=== PATIENT | male | born 1960 | race Caucasian/White ===

== ENCOUNTER 2017-09-21 06:36 | Day surgery (SDC) | payer OTHER ==
[2017-09-20 12:16] VITALS: BMI 28.8
[2017-09-21 07:03] LABS: Hemoglobin 13.1 g/dL (14.0-18.0); Mean Corpuscular HGB CONC 34.7 g/dL (32.0-36.0); Mean Corpuscular Hemoglobin 33.5 pg (27.0-31.0); Mean Corpuscular Volume 96.6 fL (78.0-98.0); Mean Platelet Volume 7.2 fL (7.4-10.4); Platelet Count 240 thou/uL (130-400); RBC Distribution Width 12.2 % (11.5-14.5); Red Blood Cell (RBC) Count 3.92 mill/uL (4.70-6.10)
[2017-09-21 07:24] LABS: Anion Gap 15 mmol/L (10-20); BUN (Urea Nitrogen) 8 mg/dL (8.4-25.7); Calc. Creatinine Clearance 143 mL/min (70-130); Calcium 9.2 mg/dL (7.8-10.44); Carbon Dioxide 26 mmol/L (22-29); Chloride 92 mmol/L (98-107); Estimated GFR-MDRD Greater than 90; Glucose 98 mg/dL (70-105); Potassium 4.6 mmol/L (3.5-5.1); Sodium 128 mmol/L (136-145)
[2017-09-21] MEDS ORDERED: CEFAZOLIN/Water 2 GM/20 ML SYRINGE ONE (07:27)
[2017-09-21] MEDS ORDERED: Midazolam HCl 2 mg/2 ml Vial ONE ×2 (08:31→08:39)
[2017-09-21] MEDS ORDERED: Fentanyl 100 MCG/2 ML VIAL ONE ×3 (10:04→12:51)
[2017-09-21] MEDS ORDERED: hydrALAZINE 20 MG/ML VIAL ONE (12:56)
[2017-09-21] MEDS ORDERED: Morphine 4 MG/ML VIAL ONE (13:34)
[2017-09-21] MEDS ORDERED: HYDROcodone/Acetaminophen 5/325 mg Tablet ONE (13:34)
[2017-09-21] MEDS ORDERED: Lidocaine 1% PF 5 ML VIAL ONE (13:43)
[2017-09-21] MEDS ORDERED: Ondansetron PF 4 MG/2 ML Vial ONE (13:43)
[2017-09-21] MEDS ORDERED: Dexamethasone 20 MG/5 ML VIAL ONE (13:43)
[2017-09-21] MEDS ORDERED: PROPOFOL 200 MG/20 ML VIAL ONE (13:43)
[2017-09-21] MEDS ORDERED: Glycopyrrolate 0.2 MG/ML 5 ML SYRINGE ONE (13:43)
[2017-09-21] MEDS ORDERED: diphenhydrAMINE 50 MG/ML VIAL ONE (13:43)
[2017-09-21] MEDS ORDERED: PHENYLEPHRINE-NS 100 MCG/ML 10 ML SYRINGE ONE (13:43)
--- NOTE | 2017-09-21 13:49 | OP ---
DATE OF OPERATION: 09/21/2017 SURGEON: Tamir Patrick M.D. EEG TECHNICIAN: Leslie Granados PROCEDURE: Right L4 foraminotomy. PROCEDURE IN DETAIL: The patient brought to the operating room and intubated. He was rolled in the prone position on gel-filled chest rolls. Incision made exposing L4 and L5 and our level was confirm ed by x-ray. We performed a right L4-5 laminectomy, facetectomy and a complete right L4 foraminotomy , completely decompressing the right L4 nerve root. The wound was extensively irrigated, immaculate hemostasis was secured. Vancomycin powder was applied and the wound was closed in anatomic layers.
--- NOTE | 2017-12-12 16:56 | EKG ---
Test Reason : PREOP Blood Pressure : / mmHG Vent. Rate : 080 BPM Atrial Rate : 080 BPM P-R Int : 148 ms QRS Dur : 084 ms QT Int : 360 ms P-R-T Axes : 015 -03 009 degrees QTc Int : 415 ms Normal sinus rhythm Normal ECG No previous ECGs available Confirmed by LUIS GUILLERMO M.D. ([id number]) on 12/12/2017 4:56:05 PM Referred By: NADER Confirmed By:LUIS GUILLERMO M.D.
== END 2017-09-21 15:15 | disposition home or self-care (01) ==
LOC: SDC 06:36
PROVIDERS: ATTEND Neurological Surgery
PROC: 01NB0ZZ Release Lumbar Nerve, Open Approach (ICD-10-PCS; principal; 2017-09-21)
DX: M99.83 Other biomechanical lesions of lumbar region (principal); M54.16 Radiculopathy, lumbar region; F41.9 Anxiety disorder, unspecified; I10 Essential (primary) hypertension; F43.10 Post-traumatic stress disorder, unspecified; Z79.899 Other long term (current) drug therapy
CPT/HCPCS: 36415; 80048; 85027; 93005; 93010; 96374; 96375; 96376; J0360; J1100; J1200; J2001; J2250; J2270; J2405; J2704; J3010

== ENCOUNTER 2018-07-23 15:36 | Emergency (ER) | payer OTHER ==
[~2018-07-23 15:36] MED LIST: ISOVUE-370 76%-LOCM 1 ML ONE
[2018-07-23 16:25] LABS: #Basophils 0.1 thou/uL (0.0-0.2); #Eosinphils 0.1 thou/uL (0.0-0.7); #Lymphocytes 1.4 thou/uL (1.20-3.40); #Monocytes 0.6 thou/uL (0.11-0.59); #Neutrophils 3.2 thou/uL (1.40-6.50); %Basophils 1.9 % (0.0-1.0); %Eosinophils 1.8 % (0.0-10.0); %Lymphocytes 25.7 % (21.0-51.0); %Monocytes 11.6 % (0.0-10.0); Hemoglobin 12.4 g/dL (14.0-18.0); Mean Corpuscular HGB CONC 32.4 g/dL (32.0-36.0); Mean Corpuscular Hemoglobin 32.3 pg (27.0-31.0); Mean Corpuscular Volume 99.7 fL (78.0-98.0); Mean Platelet Volume 8.9 fL (7.4-10.4); Platelet Count 210 thou/uL (130-400); Red Blood Cell (RBC) Count 3.84 mill/uL (4.70-6.10); White Blood Cell (WBC) Count 5.4 thou/uL (4.8-10.8)
--- NOTE | 2018-07-23 16:44 | RAD ---
RADIOGRAPH CHEST 2 VIEWS: DATE: 07/23/2018 HISTORY: 57-year-old male with chest pain FINDINGS: There is no airspace density, pulmonary edema, pleural effusion, pneumothorax, or cardiomegaly. IMPRESSION: No acute cardiopulmonary findings.
[2018-07-23 16:48] LABS: ALT (SGPT) 105 U/L (8-55); AST (SGOT) 61 U/L (5-34); Albumin 4.5 g/dL (3.5-5.0); Alkaline Phosphatase 92 U/L (40-150); Anion Gap 15 mmol/L (10-20); BUN (Urea Nitrogen) 17 mg/dL (8.4-25.7); Bilirubin, Total 0.4 mg/dL (0.2-1.2); Calc. Creatinine Clearance 0 mL/min (70-130); Calcium 9.4 mg/dL (7.8-10.44); Carbon Dioxide 28 mmol/L (22-29); Chloride 99 mmol/L (98-107); Estimated GFR-MDRD 75; Globulin 2.1 g/dL (2.4-3.5); Glucose 113 mg/dL (70-105); Potassium 4.7 mmol/L (3.5-5.1); Protein, Total 6.6 g/dL (6.0-8.3); Sodium 137 mmol/L (136-145)
--- NOTE | 2018-07-23 17:49 | CT ---
CT angiogram thorax with contrast: (CTA pulmonary angiogram) HISTORY: 57-year-old male with chest pain, syncope, and elevated d-dimer. TECHNIQUE: IV injection of iodinated contrast. Scan acquisition timing attempted to coincide with iodinated contrast bolus reaching maximal density in pulmonary arteries. 3-D MIP reconstructions. FINDINGS: Pulmonary thromboembolism: None. Lungs: Clear. Pneumothorax: None. Pleural effusion: None. Thoracic aorta: No aneurysm or dissection. Mediastinum: No lymphadenopathy or other mass. Abi: No lymphadenopathy or other mass. Suture lines around gastric bypass postsurgical, distorted stomach. IMPRESSION: 1. Status post bariatric surgery. 2. Otherwise Normal.
== END 2018-07-23 18:06 | disposition home or self-care (01) ==
LOC: ERS 15:36
DX: I10 Essential (primary) hypertension (principal); M06.9 Rheumatoid arthritis, unspecified; E03.9 Hypothyroidism, unspecified; F43.10 Post-traumatic stress disorder, unspecified; Z79.899 Other long term (current) drug therapy
CPT/HCPCS: 71046; 71275; 80053; 84443; 84484; 85025; 85379; 93005; 94760; 96360; Q9966

== ENCOUNTER 2019-01-30 08:48 | Day surgery (SDC) | payer OTHER ==
[2019-01-29 11:30] VITALS: BMI 26.7
[2019-01-30] MEDS ORDERED: Lidocaine 1% PF 5 ML VIAL ONE (11:07)
[2019-01-30] MEDS ORDERED: PROPOFOL 200 MG/20 ML VIAL ONE (11:07)
[2019-01-30] MEDS ORDERED: hydrALAZINE 20 MG/ML VIAL ONE (13:23)
[2019-01-30] MEDS ORDERED: Ondansetron PF 4 MG/2 ML Vial ONE (13:26)
--- NOTE | 2019-01-30 16:21 | OP ---
DATE OF PROCEDURE: 01/30/2019 PROCEDURES PERFORMED: Esophagogastroduodenoscopy with biopsy and colonoscopy with biopsy. PREOPERATIVE DIAGNOSES: Chronic nausea and vomiting and chronic diarrhea and family history of colon cancer. DESCRIPTION OF PROCEDURE: Informed consent was obtained from the patient. He was sedated with total intravenous anesthesia. The bite block was placed and the endoscope was advanced to the jejunum without difficulty. The esophagus had some yellow plaques in the distal esophagus and biopsies were obtained to rule out fungal esophagitis. There was a stricture in the distal esophagus, which was dilated to 18 mm with a balloon. There was no significant change on mucosal break with the dilation. There was a small stomach pouch consistent with a prior Kina-en-Y gastric bypass. There was a 9 mm shallow ulcer at the gastrojejunal anastomosis on the jejunal side. Biopsies were obtained at the edge of the ulcer and from the stomach at the anastomosis. The jejunal mucosa was normal. The gastric mucosa was otherwise normal; however, there was only a small pouch present. The air was suctioned. The patient was turned around. Rectal exam was performed and was normal. The colonoscope was advanced to the terminal ileum without difficulty. The mucosa of the terminal ileum was normal. The ileocecal valve and appendiceal orifice were clearly identified. The preparation quality was good. I removed a 2 mm polyp from the transverse colon by cold biopsy forceps. Random biopsies were taken from the right and left colon to rule out microscopic colitis. The remainder of the colonic mucosa was normal. Retroflex views in the rectum were normal. IMPRESSION: 1. Few yellow plaques in the distal esophagus, biopsied to evaluate for fungal esophagitis. 2. Mild esophageal stricture dilated to 18 mm with a balloon dilator without significant change following the dilation. 3. Gastrojejunal ulcer at the anastomosis. This was shallow. Biopsies were taken from the ulcer edge and the anastomosis at the gastrojejunostomy. 4. Otherwise normal esophagogastroduodenoscopy, status post Kina-en-Y gastric bypass. 5. A 2 mm transverse polyp was removed by cold biopsy forceps. 6. Otherwise normal colonoscopy to the terminal ileum. Random biopsies were taken from the right and left colon to rule out microscopic colitis. RECOMMENDATIONS: 1. Await histopathology. 2. Proton pump inhibitor. 3. Avoid NSAIDs. 4. Repeat colonoscopy in 5 years. 5. Follow up in GI clinic. 6. Proton pump inhibitor. Job ID: [id number]
== END 2019-01-30 14:15 | disposition home or self-care (01) ==
LOC: SDC 08:48
PROVIDERS: ATTEND Internal Medicine Gastroenterology
PROC: 0D758ZZ Dilation of Esophagus, Via Natural or Artificial Opening Endoscopic (ICD-10-PCS; principal; 2019-01-30)
PROC: 0DBF8ZZ Excision of Right Large Intestine, Via Natural or Artificial Opening Endoscopic (ICD-10-PCS; principal; 2019-01-30)
PROC: 0DB68ZX Excision of Stomach, Via Natural or Artificial Opening Endoscopic, Diagnostic (ICD-10-PCS; principal; 2019-01-30)
PROC: 0DBL8ZX Excision of Transverse Colon, Via Natural or Artificial Opening Endoscopic, Diagnostic (ICD-10-PCS; principal; 2019-01-30)
PROC: 0DBG8ZX Excision of Left Large Intestine, Via Natural or Artificial Opening Endoscopic, Diagnostic (ICD-10-PCS; principal; 2019-01-30)
DX: K29.50 Unspecified chronic gastritis without bleeding (principal); K31.89 Other diseases of stomach and duodenum; K63.5 Polyp of colon; K22.2 Esophageal obstruction; K52.9 Noninfective gastroenteritis and colitis, unspecified; K25.9 Gastric ulcer, unspecified as acute or chronic, without hemorrhage or perforation; F41.9 Anxiety disorder, unspecified; M19.90 Unspecified osteoarthritis, unspecified site; F32.9 Major depressive disorder, single episode, unspecified; G47.30 Sleep apnea, unspecified; Z79.899 Other long term (current) drug therapy; Z80.0 Family history of malignant neoplasm of digestive organs; Z98.84 Bariatric surgery status
CPT/HCPCS: 88305; 88312; 88313; J0360; J2001; J2405; J2704

== ENCOUNTER 2019-02-26 19:30 | Outpatient (CLI) | payer OTHER | END 2019-02-26 19:31 | disposition home or self-care (01) | LOC: SLEEPLAB 19:30 | PROVIDERS: ATTEND Internal Medicine | DX: G47.33 Obstructive sleep apnea (adult) (pediatric) (principal); I10 Essential (primary) hypertension; R53.83 Other fatigue; R06.83 Snoring; F41.9 Anxiety disorder, unspecified | CPT/HCPCS: 95811 ==

== ENCOUNTER 2019-08-03 07:35 | Outpatient (CLI) | payer OTHER ==
[2019-08-03 12:01] LABS: Band 1 % (5-11); Eosinophils 1 % (0-10); Hemoglobin 11.5 g/dL (14.0-18.0); Lymphocytes 23 % (21-51); MDiff Complete? YES; Macrocytosis SLIGHT = 6-15 cells (100X) (0-5/hpf); Mean Corpuscular HGB CONC 33.4 g/dL (32.0-36.0); Mean Corpuscular Hemoglobin 34.7 pg (27.0-31.0); Mean Platelet Volume 8.8 fL (7.4-10.4); Monocytes 22 % (0-10); Neutrophil 51 % (42-75); Platelet Count 195 thou/uL (130-400); Platelet Morphology Comment Appears Adequate; RBC Distribution Width 13.8 % (11.5-14.5); White Blood Cell (WBC) Count 5.8 thou/uL (4.8-10.8)
[2019-08-03 12:18] LABS: ALT (SGPT) 238 U/L (8-55); AST (SGOT) 564 U/L (5-34); Alkaline Phosphatase 83 U/L (40-110); Anion Gap 16 mmol/L (10-20); BUN (Urea Nitrogen) 13 mg/dL (8.4-25.7); Bilirubin, Total 0.4 mg/dL (0.2-1.2); Calc. Creatinine Clearance 0 mL/min (70-130); Calcium 8.5 mg/dL (7.8-10.44); Carbon Dioxide 22 mmol/L (22-29); Chloride 102 mmol/L (98-107); Estimated GFR-MDRD 69; Globulin 2.1 g/dL (2.4-3.5); Glucose 128 mg/dL (70-105); Potassium 4.8 mmol/L (3.5-5.1); Protein, Total 6.1 g/dL (6.0-8.3); Sodium 135 mmol/L (136-145)
[2019-08-04 11:33] LABS: SARS-CoV-2 MS2 Positive; SARS-CoV-2 N Gene Negative; SARS-CoV-2 S Gene Negative; SARS-CoV-2 orf1ab Negative
== END 2019-08-03 07:36 | disposition home or self-care (01) ==
LOC: LABBT 07:35
PROVIDERS: ATTEND Specialist
DX: Z01.818 Encounter for other preprocedural examination (principal); Z11.59 Encounter for screening for other viral diseases; K80.12 Calculus of gallbladder with acute and chronic cholecystitis without obstruction
CPT/HCPCS: 80053; 85025; 87635; U0003

== ENCOUNTER 2019-08-07 06:18 | Day surgery (SDC) | payer OTHER ==
[2019-08-02 11:09] VITALS: BMI 25.1
[2019-08-07] MEDS ORDERED: Acetaminophen 500 MG TAB ONE (06:38)
[2019-08-07] MEDS ORDERED: Ketorolac Tromethamine 30 MG/ML VIAL ONE (06:39)
[2019-08-07] MEDS ORDERED: Bupivacaine 0.25% HCL 30 ML VIAL ONE (06:42)
[2019-08-07] MEDS ORDERED: Lidocaine 1% w/Epinephrine 1:100K 20 ML VIAL ONE (06:42)
[2019-08-07] MEDS ORDERED: Fentanyl 100 MCG/2 ML VIAL ONE ×2 (06:49)
[2019-08-07] MEDS ORDERED: SUGAMMADEX SODIUM 500 MG/5 ML VIAL ONE (06:49)
[2019-08-07] MEDS ORDERED: Midazolam HCl 2 mg/2 ml Vial ONE (07:20)
[2019-08-07] MEDS ORDERED: EPHEDRINE 25 MG/5 ML SYRINGE ONE ×2 (07:56→11:32)
[2019-08-07] MEDS ORDERED: HYDROcodone/Acetaminophen 5/325 mg Tablet ONE (09:51)
[2019-08-07] MEDS ORDERED: Glycopyrrolate 0.2 MG/ML 5 ML SYRINGE ONE (11:32)
[2019-08-07] MEDS ORDERED: PROPOFOL 200 MG/20 ML VIAL ONE (11:32)
[2019-08-07] MEDS ORDERED: Ondansetron PF 4 MG/2 ML Vial ONE (11:32)
[2019-08-07] MEDS ORDERED: Dexamethasone 20 MG/5 ML VIAL ONE (11:32)
[2019-08-07] MEDS ORDERED: Rocuronium Bromide 10 MG/ML (10ML VIAL) ONE (11:32)
[2019-08-07] MEDS ORDERED: Lidocaine 1% PF 5 ML VIAL ONE (11:32)
--- NOTE | 2019-08-08 12:18 | OP ---
DATE OF PROCEDURE: 08/07/2019 PREOPERATIVE DIAGNOSIS: Symptomatic cholelithiasis. POSTOPERATIVE DIAGNOSIS: Symptomatic cholelithiasis. PROCEDURE PERFORMED: Laparoscopic cholecystectomy. ANESTHESIA: General endotracheal. INDICATIONS FOR PROCEDURE: The patient is a 58-year-old white male. He has a history of a gastric bypass and an abdominoplasty. He was taken to the operating room at this time for laparoscopic cholecystectomy in treatment of symptomatic gallstones. PROCEDURE IN DETAIL: Informed consent was obtained. The patient was taken to the operating room where general endotracheal anesthesia was obtained with the patient in the supine position. The abdomen was prepped with Betadine and draped in the usual sterile fashion. 0.25% Marcaine with epinephrine was infiltrated below the umbilicus and a 10 mm infraumbilical incision was created. A Veress needle was passed through this incision into the peritoneal cavity. A pneumoperitoneum was established using carbon dioxide up to a pressure of 15 mmHg. Local anesthetic was infiltrated and 3 additional 5 mm right upper quadrant incisions were created. Through the mid incision, a 5 mm port was passed into the peritoneal cavity. The camera was passed through this port and under direct vision, an 11 port was passed through the infraumbilical incision. The camera was replaced through this port, and under direct vision, 2 additional 5 mm ports were passed through the incisions already created. The gallbladder was grasped and retracted in a cephalad direction. Minimal adhesions were bluntly stripped away from the apex of the gallbladder, and the apex was retracted laterally and inferiorly. Careful dissection was carried out to the apex of the gallbladder to identify the cystic duct and cystic artery. These were each carefully dissected circumferentially. The duct was of normal caliber. Both the duct and the artery were divided between clips, leaving 2 on the side to remain within the abdomen. The gallbladder was then dissected out of the gallbladder fossa using electrocautery and removed through the infraumbilical port site. The fascia was closed with 0 Vicryl suture and a GraNee needle. The right upper quadrant was inspected and irrigated. All irrigant was aspirated. All ports and instruments were removed under direct vision. Pneumoperitoneum was carefully evacuated. Additional local anesthetic was infiltrated into each port site. The skin edges were approximated with 4-0 Monocryl subcuticular sutures, and Dermabond was placed externally. There were no complications. The patient tolerated the procedure well and was taken to the recovery room in stable condition. FINDINGS: The patient had no significant inflammation of the gallbladder. There was; however, substantial adhesive disease to the gallbladder, indicative of prior inflammatory change. The duct was small and noninflamed. Cholangiogram was not obtained. There were no complications. Blood loss was negligible. The patient tolerated the procedure well and was taken to recovery room in stable condition. Job ID: [id number]
--- NOTE | 2019-08-09 17:38 | EKG ---
Test Reason : PREOP Blood Pressure : / mmHG Vent. Rate : 063 BPM Atrial Rate : 063 BPM P-R Int : 140 ms QRS Dur : 086 ms QT Int : 444 ms P-R-T Axes : 050 013 009 degrees QTc Int : 454 ms Normal sinus rhythm Normal ECG When compared with ECG of 23-JUL-2018 15:51, (Unconfirmed) No significant change was found Confirmed by DR. Liv CONNOLLY ([id number]) on 08/09/2019 5:37:46 PM Referred By: UTE Confirmed By:DR. Liv CONNOLLY
== END 2019-08-07 10:45 | disposition home or self-care (01) ==
LOC: SDC 06:18
PROVIDERS: ATTEND Specialist
PROC: 0FT44ZZ Resection of Gallbladder, Percutaneous Endoscopic Approach (ICD-10-PCS; principal; 2019-08-07)
DX: K80.12 Calculus of gallbladder with acute and chronic cholecystitis without obstruction (principal); K82.8 Other specified diseases of gallbladder; I10 Essential (primary) hypertension; F43.10 Post-traumatic stress disorder, unspecified; E78.5 Hyperlipidemia, unspecified; M19.90 Unspecified osteoarthritis, unspecified site; Z79.899 Other long term (current) drug therapy; Z88.5 Allergy status to narcotic agent; Z98.84 Bariatric surgery status
CPT/HCPCS: 88304; 93005; 93010; J0690; J1100; J1885; J2001; J2250; J2405; J2704; J3010; S0020

== ENCOUNTER 2021-01-15 17:33 | Inpatient (IN) | payer BC ==
[~2021-01-15 17:33] MED LIST changes: -ISOVUE-370 76%-LOCM 1 ML ONE; +Lorazepam 1 MG TAB PO PRN
[2021-01-15] MEDS ORDERED: niCARdipine 20MG In NaCl 20 MG/200 ML BAG ONE (17:51)
[2021-01-15] MEDS ORDERED: Lidocaine 1% w/Epinephrine 1:100K 20 ML VIAL ONE (18:02)
[2021-01-15] MEDS ORDERED: Morphine 4 MG/ML VIAL ONE (18:49)
[2021-01-15 19:50] LABS: RBC Count-Automated (BF) 456 /cu.mm; WBC/Nucleated-Auto (BF) 283 /cu.mm
[2021-01-15 20:03] LABS: Body Fluid Source Pleural Fluid; Tube # 1
[2021-01-15 20:05] LABS: BF Color Yellow; Clarity Cloudy/Turbid (Clear)
[2021-01-15 20:07] LABS: BF Segmented Neutrophils 2 %; Cell Count Non Hematic 50 %; Lymphocytes 48 %
[2021-01-15] MEDS ORDERED: Acetaminophen 325 MG TAB PO PRN (21:08)
[2021-01-15] MEDS ORDERED: Ondansetron PF 4 MG/2 ML Vial IVP PRN (21:08)
[2021-01-15] MEDS ORDERED: Ondansetron ODT 4 MG TAB PO PRN (21:45)
[2021-01-15] MEDS ORDERED: Electrolyte Replacement Protocol 1 EACH FS PRN (21:45)
[2021-01-15] MEDS ORDERED: Metoprolol Tartrate 25 MG TAB PO SCH (21:45)
[2021-01-15] MEDS ORDERED: Lorazepam 2 MG/ML VIAL IM PRN (21:45)
[2021-01-15] MEDS ORDERED: Furosemide 20 MG/2 ML VIAL SLOW IVP SCH (22:00)
[2021-01-15] MEDS: Lorazepam 1 MG TAB PO SCH (22:07)
[2021-01-15 22:21] LABS: Anion Gap 16 mmol/L (10-20); BUN (Urea Nitrogen) 7 mg/dL (8.4-25.7); Calc. Creatinine Clearance 0 mL/min (70-130); Calcium 9.5 mg/dL (7.8-10.44); Carbon Dioxide 23 mmol/L (22-29); Chloride 99 mmol/L (98-107); Glucose 162 mg/dL (70-105); Potassium 4.1 mmol/L (3.5-5.1); Sodium 134 mmol/L (136-145)
[2021-01-15 22:29] LABS: Critical Call Chem Troponin I RESULT DECREASING; Troponin I 1.557 ng/mL (< 0.028)
[2021-01-15] MEDS: niCARdipine 25 MG in Sodium Chloride 0.9% 250 ML 250 ML IVPB SCH (22:56)
[2021-01-16] MEDS: Thiamine HCl 200 MG/2 ML VIAL SLOW IVP SCH ×2 (00:02→21:35)
[2021-01-16] MEDS: Lorazepam 1 MG TAB PO SCH ×4 (00:56→18:01)
[2021-01-16 04:04] LABS: Anion Gap 16 mmol/L (10-20); BUN (Urea Nitrogen) 7 mg/dL (8.4-25.7); Calc. Creatinine Clearance 114 mL/min (70-130); Calcium 9.6 mg/dL (7.8-10.44); Carbon Dioxide 25 mmol/L (22-29); Chloride 97 mmol/L (98-107); Glucose 137 mg/dL (70-105); Potassium 3.9 mmol/L (3.5-5.1); Sodium 134 mmol/L (136-145)
[2021-01-16 04:07] LABS: ALT (SGPT) 17 U/L (8-55); AST (SGOT) 33 U/L (5-34); Albumin 3.9 g/dL (3.5-5.0); Alkaline Phosphatase 126 U/L (40-110); Bilirubin, Direct 0.4 mg/dL (0.1-0.3); Bilirubin, Total 0.7 mg/dL (0.2-1.2); Protein, Total 7.4 g/dL (6.0-8.3)
[2021-01-16 04:14] LABS: #Basophils 0.1 thou/uL (0.0-0.2); #Monocytes 1.1 thou/uL (0.11-0.59); #Neutrophils 6.3 thou/uL (1.40-6.50); %Basophils 0.8 % (0.0-1.0); %Eosinophils 0.4 % (0.0-10.0); %Lymphocytes 12.1 % (21.0-51.0); %Monocytes 12.4 % (0.0-10.0); %Neutrophils 74.4 % (42.0-75.0); Hemoglobin 13.7 g/dL (14.0-18.0); Mean Corpuscular Hemoglobin 35.6 pg (27.0-31.0); Mean Platelet Volume 8.4 fL (7.4-10.4); Platelet Count 251 thou/uL (130-400); RBC Distribution Width 12.6 % (11.5-14.5); Red Blood Cell (RBC) Count 3.85 mill/uL (4.70-6.10); White Blood Cell (WBC) Count 8.5 thou/uL (4.8-10.8)
[2021-01-16] MEDS ORDERED: Amlodipine 10 MG TAB PO SCH ×2 (05:00→21:00)
[2021-01-16] MEDS: Furosemide 40 MG/4 ML VIAL SLOW IVP SCH ×2 (05:12→14:02)
[2021-01-16] MEDS ORDERED: Lisinopril 20 MG TAB PO SCH (09:00)
[2021-01-16] MEDS ORDERED: FLU VACC QS2021-22(6MOS UP)/PF 60 MCG/0.5 ML SYRINGE IM ONE (09:00)
[2021-01-16] MEDS: Lisinopril 20 MG TAB PO SCH (09:22)
[2021-01-16] MEDS: Famotidine 20 MG TAB PO SCH ×2 (09:23→21:35)
[2021-01-16] MEDS: Metoprolol Tartrate 25 MG TAB PO SCH ×2 (09:23→21:35)
[2021-01-16] MEDS: Multivit, Therapeutic 1 TAB PO SCH (09:23)
[2021-01-16] MEDS: Folic Acid 1 MG TAB PO SCH (09:39)
[2021-01-16] MEDS ORDERED: NIFEdipine XL 30 MG TAB PO SCH (12:02)
[2021-01-16] MEDS: niCARdipine 25 MG in Sodium Chloride 0.9% 250 ML 250 ML IVPB SCH (14:42)
[2021-01-16] MEDS: hydrALAZINE 20 MG/ML VIAL SLOW IVP PRN (15:37)
[2021-01-16] MEDS ORDERED: Lorazepam 2 MG/ML VIAL SLOW IVP PRN (16:17)
[2021-01-16] MEDS: NIFEdipine XL 30 MG TAB PO SCH (21:35)
[2021-01-16] MEDS: Rosuvastatin 20 MG TAB PO SCH (21:36)
[2021-01-16] MEDS: HYDROcodone/Acetaminophen 5/325 mg Tablet PO PRN (21:37)
[2021-01-16] MEDS ORDERED: busPIRone HCl 10 MG TAB PO SCH (22:00)
[2021-01-16] MEDS ORDERED: OXcarbazepine 300 MG TAB PO SCH (22:00)
[2021-01-16] MEDS ORDERED: Gabapentin 300 MG CAP PO SCH (22:00)
[2021-01-16] MEDS ORDERED: Lurasidone 20 MG TABLET PO SCH (22:00)
[2021-01-17] MEDS: Lorazepam 1 MG TAB PO SCH (00:31)
[2021-01-17 04:05] LABS: Anion Gap 14 mmol/L (10-20); BUN (Urea Nitrogen) 14 mg/dL (8.4-25.7); Calc. Creatinine Clearance 80 mL/min (70-130); Calcium 9.9 mg/dL (7.8-10.44); Carbon Dioxide 25 mmol/L (22-29); Chloride 103 mmol/L (98-107); Glucose 121 mg/dL (70-105); Magnesium 1.9 mg/dL (1.6-2.6); Potassium 3.7 mmol/L (3.5-5.1); Sodium 138 mmol/L (136-145)
[2021-01-17 04:51] VITALS: BMI 26.7
[2021-01-17] MEDS ORDERED: Magnesium 2 GM/50 ML 2 GM in Premix Bag 1 BAG IVPB SCH (05:15)
[2021-01-17 05:16] LABS: Band 8 % (5-11); Eosinophils 1 % (0-10); Hemoglobin 14.6 g/dL (14.0-18.0); Lymphocytes 15 % (21-51); MDiff Complete? YES; Mean Corpuscular Hemoglobin 35.8 pg (27.0-31.0); Mean Platelet Volume 8.3 fL (7.4-10.4); Monocytes 19 % (0-10); Neutrophil 57 % (42-75); Platelet Count 269 thou/uL (130-400); Red Blood Cell (RBC) Count 4.07 mill/uL (4.70-6.10); White Blood Cell (WBC) Count 7.6 thou/uL (4.8-10.8)
[2021-01-17] MEDS: Furosemide 40 MG/4 ML VIAL SLOW IVP SCH ×2 (06:26→13:18)
[2021-01-17] MEDS: Lorazepam 0.5 MG TAB PO SCH ×3 (06:27→18:51)
[2021-01-17] MEDS: Levothyroxine Sodium 125 MCG TAB PO SCH (06:27)
[2021-01-17] MEDS: hydrALAZINE 20 MG/ML VIAL SLOW IVP PRN (06:34)
[2021-01-17] MEDS: Lorazepam 1 MG TAB PO PRN ×2 (07:36→13:59)
[2021-01-17] MEDS ORDERED: OXcarbazepine 600 MG TAB PO SCH (09:00)
[2021-01-17] MEDS ORDERED: hydrALAZINE 25 MG TAB PO SCH (09:00)
[2021-01-17] MEDS ORDERED: Amlodipine 10 MG TAB PO SCH (09:00)
[2021-01-17] MEDS: Metoprolol Tartrate 25 MG TAB PO SCH ×2 (09:46→21:19)
[2021-01-17] MEDS: Famotidine 20 MG TAB PO SCH ×2 (09:46→21:22)
[2021-01-17] MEDS: Folic Acid 1 MG TAB PO SCH (09:46)
[2021-01-17] MEDS: Lisinopril 20 MG TAB PO SCH (10:35)
[2021-01-17] MEDS: NIFEdipine XL 30 MG TAB PO SCH ×2 (10:35→21:19)
[2021-01-17] MEDS: busPIRone HCl 10 MG TAB PO SCH ×2 (10:36→21:22)
[2021-01-17] MEDS: OXcarbazepine 300 MG TAB PO SCH ×2 (10:40→21:18)
[2021-01-17] MEDS ORDERED: Furosemide 40 MG/4 ML VIAL ONE (13:18)
[2021-01-17] MEDS: HYDROcodone/Acetaminophen 5/325 mg Tablet PO PRN (14:41)
[2021-01-17] MEDS ORDERED: chlordiazePOXIDE HCl 25 MG CAP PO SCH (18:45)
[2021-01-17] MEDS: Thiamine HCl 200 MG/2 ML VIAL SLOW IVP SCH (21:18)
[2021-01-17] MEDS: Rosuvastatin 20 MG TAB PO SCH (21:19)
[2021-01-17] MEDS: chlordiazePOXIDE HCl 25 MG CAP PO SCH (21:19)
[2021-01-17] MEDS: Lurasidone 20 MG TABLET PO SCH (21:19)
[2021-01-17] MEDS: Gabapentin 300 MG CAP PO SCH (21:21)
[2021-01-17] MEDS ORDERED: Lorazepam 1 MG TAB PO PRN (21:45)
[2021-01-18 05:37] LABS: Hemoglobin 13.6 g/dL (14.0-18.0); Mean Corpuscular HGB CONC 32.5 g/dL (32.0-36.0); Mean Corpuscular Hemoglobin 34.6 pg (27.0-31.0); Mean Platelet Volume 8.2 fL (7.4-10.4); Platelet Count 260 thou/uL (130-400); RBC Distribution Width 12.7 % (11.5-14.5); Red Blood Cell (RBC) Count 3.92 mill/uL (4.70-6.10); White Blood Cell (WBC) Count 7.2 thou/uL (4.8-10.8)
[2021-01-18 05:53] LABS: Anion Gap 14 mmol/L (10-20); BUN (Urea Nitrogen) 19 mg/dL (8.4-25.7); Calc. Creatinine Clearance 75 mL/min (70-130); Calcium 9.1 mg/dL (7.8-10.44); Carbon Dioxide 25 mmol/L (22-29); Chloride 100 mmol/L (98-107); Glucose 99 mg/dL (70-105); Potassium 3.8 mmol/L (3.5-5.1); Sodium 135 mmol/L (136-145)
[2021-01-18] MEDS ORDERED: Lorazepam 0.5 MG TAB PO PRN (06:00)
[2021-01-18 06:02] LABS: Band 7 % (5-11); Eosinophils 6 % (0-10); Lymphocytes 13 % (21-51); MDiff Complete? YES; Monocytes 14 % (0-10); Neutrophil 59 % (42-75)
[2021-01-18] MEDS: Levothyroxine Sodium 125 MCG TAB PO SCH (06:05)
[2021-01-18] MEDS: Furosemide 40 MG/4 ML VIAL SLOW IVP SCH ×2 (06:05→19:33)
[2021-01-18] MEDS: chlordiazePOXIDE HCl 25 MG CAP PO SCH ×3 (09:44→22:55)
[2021-01-18] MEDS: Folic Acid 1 MG TAB PO SCH (09:45)
[2021-01-18] MEDS: Lisinopril 20 MG TAB PO SCH (09:45)
[2021-01-18] MEDS: NIFEdipine XL 30 MG TAB PO SCH ×2 (09:45→20:56)
[2021-01-18] MEDS: Famotidine 20 MG TAB PO SCH ×2 (09:46→20:54)
[2021-01-18] MEDS: Thiamine 100 MG TAB PO SCH (09:46)
[2021-01-18] MEDS: Multivit, Therapeutic 1 TAB PO SCH (09:46)
[2021-01-18] MEDS: OXcarbazepine 300 MG TAB PO SCH ×2 (09:46→20:56)
[2021-01-18] MEDS: busPIRone HCl 10 MG TAB PO SCH ×2 (09:50→20:54)
[2021-01-18] MEDS: Metoprolol Tartrate 25 MG TAB PO SCH ×2 (10:23→20:56)
[2021-01-18] MEDS ORDERED: Regadenoson 0.4 MG/5 ML SYRINGE ONE (12:01)
[2021-01-18] MEDS: Lurasidone 20 MG TABLET PO SCH (20:55)
[2021-01-18] MEDS: Gabapentin 300 MG CAP PO SCH (20:55)
[2021-01-18] MEDS: Rosuvastatin 20 MG TAB PO SCH (20:57)
[2021-01-19] MEDS: Levothyroxine Sodium 125 MCG TAB PO SCH (05:55)
[2021-01-19] MEDS: Furosemide 40 MG/4 ML VIAL SLOW IVP SCH ×2 (05:55→15:50)
[2021-01-19] MEDS ORDERED: Azithromycin 500 MG in Sodium Chloride 0.9% 250 ML 250 ML IVPB SCH (10:00)
[2021-01-19] MEDS: Thiamine 100 MG TAB PO SCH (10:15)
[2021-01-19] MEDS: OXcarbazepine 300 MG TAB PO SCH (10:15)
[2021-01-19] MEDS: chlordiazePOXIDE HCl 25 MG CAP PO SCH ×2 (10:15→15:49)
[2021-01-19] MEDS: NIFEdipine XL 30 MG TAB PO SCH (10:16)
[2021-01-19] MEDS: Multivit, Therapeutic 1 TAB PO SCH (10:16)
[2021-01-19] MEDS: Famotidine 20 MG TAB PO SCH (10:16)
[2021-01-19] MEDS: Lisinopril 20 MG TAB PO SCH (10:16)
[2021-01-19] MEDS: Folic Acid 1 MG TAB PO SCH (10:16)
[2021-01-19] MEDS: busPIRone HCl 10 MG TAB PO SCH (10:17)
[2021-01-19] MEDS: Metoprolol Tartrate 25 MG TAB PO SCH (10:17)
[2021-01-19 11:21] LABS: Free T4 (Free Thyroxine) 1.22 ng/dL (0.70-1.48); Thyroid Stimulating Hormone 0.6822 uIU/mL (0.35-4.94)
[2021-01-19 11:56] VITALS: TEMP 97.6
[2021-01-19] MEDS ORDERED: Piperacillin/Tazobactam 3.375 GM in Sodium Chloride 0.9% 100 ML IVPB SCH ×3 (12:00→22:00)
[2021-01-19 16:05] VITALS: BP 111/73
[2021-01-20 13:22] LABS: EliA Thy New Method **** NEW METHOD ****; Thyroglobulin Antibody Less than 12.0 IU/mL (<40 Normal); Thyroid Peroxidase IgG Ab Less than 4.0 IU/mL (<25 Normal)
[2021-01-22 07:16] LABS: Thyroid Stimulating Immunoglob <0.10 IU/L (0.00-0.55); Thyroxine Binding Globulin 18 ug/mL (13-39)
== END 2021-01-19 17:25 | disposition home or self-care (01) | DRG 189 ==
LOC: ERS 17:33 → CCU 18:51 → NEURO 01-17 16:25
PROVIDERS: ADMIT Internal Medicine; ATTEND Internal Medicine
PROC: 0W9B3ZZ Drainage of Left Pleural Cavity, Percutaneous Approach (ICD-10-PCS; principal; 2021-01-15)
PROC: HZ2ZZZZ Detoxification Services for Substance Abuse Treatment (ICD-10-PCS; 2021-01-18)
DX: J96.01 Acute respiratory failure with hypoxia (principal); I21.A1 Myocardial infarction type 2; J18.9 Pneumonia, unspecified organism; I16.1 Hypertensive emergency; J91.8 Pleural effusion in other conditions classified elsewhere; E87.1 Hypo-osmolality and hyponatremia; J95.811 Postprocedural pneumothorax; F10.139 Alcohol abuse with withdrawal, unspecified; Z23 Encounter for immunization; I10 Essential (primary) hypertension; M06.9 Rheumatoid arthritis, unspecified; G47.33 Obstructive sleep apnea (adult) (pediatric); F43.10 Post-traumatic stress disorder, unspecified; D64.9 Anemia, unspecified; G25.0 Essential tremor; I25.10 Atherosclerotic heart disease of native coronary artery without angina pectoris; Y84.8 Other medical procedures as the cause of abnormal reaction of the patient, or of later complication, without mention of misadventure at the time of the procedure; Z79.899 Other long term (current) drug therapy; Z79.890 Hormone replacement therapy; Z99.89 Dependence on other enabling machines and devices; Z98.84 Bariatric surgery status; Z98.890 Other specified postprocedural states; Z80.3 Family history of malignant neoplasm of breast; Z80.0 Family history of malignant neoplasm of digestive organs; Z82.49 Family history of ischemic heart disease and other diseases of the circulatory system
CPT/HCPCS: 32554; 36415; 71045; 71250; 78452; 80048; 80076; 82042; 82945; 83615; 83735; 84157; 84238; 84439; 84442; 84443; 84445; 85025; 85060; 86376; 86800; 87070; 87205; 88112; 88305; 89051; 90471; 90686; 93017; 93306; 94660; 96365; 96366; 96375; A9500; G0008; J0360; J0456; J1940; J2060; J2270; J2405; J2543; J2785; J3411; J3475; J3490; J7050

== ENCOUNTER 2022-06-29 11:09 | Outpatient (CLI) | payer BC | END 2022-06-29 11:10 | disposition home or self-care (01) | LOC: NM 11:09 | PROVIDERS: ATTEND Internal Medicine | DX: D35.00 Benign neoplasm of unspecified adrenal gland (principal) | CPT/HCPCS: 78075; A9582 ==

== ENCOUNTER 2024-11-01 06:42 | Inpatient (IN) | payer OTHER ==
[2024-11-01] MEDS ORDERED: Ropivacaine 0.5% HCl/PF (150 MG/30 ML VIAL) ONE (07:52)
[2024-11-01] MEDS ORDERED: Ropivacaine 0.2% HCl/PF 20 ML ONE (07:52)
[2024-11-01] MEDS ORDERED: PROPOFOL 20 ML ONE (08:28)
[2024-11-01] MEDS ORDERED: Lidocaine 1% PF 5 ML VIAL ONE (08:28)
[2024-11-01] MEDS ORDERED: Rocuronium Bromide 10 MG/ML (10ML VIAL) ONE (08:28)
[2024-11-01] MEDS ORDERED: Ondansetron PF 4 MG/2 ML Vial ONE (08:28)
[2024-11-01] MEDS ORDERED: CEFAZOLIN 2 GM VIAL ONE (08:39)
[2024-11-01] MEDS ORDERED: Ondansetron PF 4 MG/2 ML Vial IVP PRN (09:00)
[2024-11-01] MEDS ORDERED: HYDROcodone/Acetaminophen 10/325 mg Tablet PO PRN (09:00)
[2024-11-01] MEDS ORDERED: Ropivacaine 0.2% 550 ML 550 ML NERVE BLCK SCH (09:00)
[2024-11-01] MEDS ORDERED: Phenylephrine 40 MG/NS 250 ML 250 ML ONE (09:40)
[2024-11-01] MEDS ORDERED: SUGAMMADEX SODIUM 200 MG/2 ML VIAL ONE (10:53)
[2024-11-01] MEDS ORDERED: Communication Order-Pharmacy FS SCH (11:15)
[2024-11-01] MEDS ORDERED: fentaNYL PF 100 MCG/2 ML SYRINGE ONE (11:53)
[2024-11-01] MEDS: HYDROcodone/Acetaminophen 10/325 mg Tablet PO PRN (15:13)
[2024-11-01] MEDS: Ketorolac Tromethamine 30 MG (1 mL) VIAL IVP SCH (16:35)
[2024-11-01] MEDS: Gabapentin 300 MG CAP PO SCH ×2 (17:21→20:36)
[2024-11-01] MEDS: CEFAZOLIN 2 GM VIAL ONE ×2 (17:38→23:39)
[2024-11-01] MEDS: Pantoprazole 40 MG DR.TAB PO SCH (20:37)
[2024-11-01] MEDS: Rosuvastatin 20 MG TAB PO SCH (20:39)
[2024-11-01] MEDS: Carvedilol 25 MG TAB PO SCH (20:39)
[2024-11-01] MEDS: Vancomycin 1.25 GM / NS 250 ML VIAL-2-BAG IVPB SCH (20:59)
[2024-11-01] MEDS ORDERED: Non-Formulary Item 1 EACH (Turmeric Root Extract [Turmeric] 500 MG Capsule) PO SCH (21:00)
[2024-11-02 06:14] LABS: #Basophils 0.13 10x3/uL (0.0-0.2); #Eosinophils 0.21 10x3/uL (0.0-0.7); #Monocytes 1.40 10x3/uL (0.11-0.59); #Neutrophils 8.46 10x3/uL (1.40-6.50); %Basophils 1.2 % (0.0-1.0); %Eosinophils 2.0 % (0.0-10.0); %Lymphocytes 3.8 % (21.0-51.0); %Monocytes 13.1 % (0.0-10.0); %Neutrophils 79.3 % (42.0-75.0); Hematocrit 28.8 % (42.0-52.0); Hemoglobin 9.4 g/dL (14.0-18.0); Mean Corpuscular Hemoglobin 29.4 pg (27.0-31.0); Mean Corpuscular Volume 90.0 fL (78.0-98.0); Platelet Count 253 10x3/uL (130-400); Red Blood Cell (RBC) Count 3.20 mill/uL (4.70-6.10); White Blood Cell (WBC) Count 10.67 10x3/uL (4.8-10.8)
[2024-11-02 06:32] LABS: ALT (SGPT) 10 U/L (Less than 45); AST (SGOT) 21 U/L (11-34); Albumin 3.1 g/dL (3.1-4.5); Alkaline Phosphatase 71 U/L (40-110); Anion Gap 13 mmol/L (10-20); BUN (Urea Nitrogen) 13 mg/dL (8.4-25.7); Bilirubin, Total 0.3 mg/dL (0.3-1.2); Calc. Creatinine Clearance 109 mL/min (70-130); Calcium 8.1 mg/dL (7.8-10.44); Carbon Dioxide 22 mmol/L (23-31); Chloride 95 mmol/L (98-107); Globulin 2.3 g/dL (2.4-3.5); Glucose 124 mg/dL (80-115); Potassium 5.0 mmol/L (3.5-5.1); Sodium 125 mmol/L (136-145)
[2024-11-02] MEDS: Lisinopril 20 MG TAB PO SCH (08:20)
[2024-11-02] MEDS: Cholecalciferol 1,000 UNITS (25 MCG) TAB PO SCH (08:20)
[2024-11-02] MEDS: Multivit, Therapeutic 1 TAB PO SCH (08:21)
[2024-11-02] MEDS: Spironolactone 25 MG TAB PO SCH (08:36)
[2024-11-02] MEDS: Sertraline 100 MG TAB PO SCH (08:36)
[2024-11-02] MEDS ORDERED: Acetaminophen 325 MG TAB PO PRN (09:26)
[2024-11-03] MEDS ORDERED: Iopamidol-370 76% 500 ML MDV (1 ML CHARGE) ONE (09:27)
[2024-11-03 10:08] LABS: #Basophils 0.07 10x3/uL (0.0-0.2); #Eosinophils 0.46 10x3/uL (0.0-0.7); #Monocytes 1.48 10x3/uL (0.11-0.59); #Neutrophils 9.61 10x3/uL (1.40-6.50); %Basophils 0.6 % (0.0-1.0); %Eosinophils 3.8 % (0.0-10.0); %Lymphocytes 4.3 % (21.0-51.0); %Monocytes 12.1 % (0.0-10.0); %Neutrophils 78.8 % (42.0-75.0); Hematocrit 26.1 % (42.0-52.0); Hemoglobin 8.4 g/dL (14.0-18.0); Mean Corpuscular Hemoglobin 29.5 pg (27.0-31.0); Mean Corpuscular Volume 91.6 fL (78.0-98.0); Platelet Count 280 10x3/uL (130-400); Red Blood Cell (RBC) Count 2.85 mill/uL (4.70-6.10); White Blood Cell (WBC) Count 12.19 10x3/uL (4.8-10.8)
[2024-11-03] MEDS: Furosemide 20 MG (2 mL) VIAL SLOW IVP SCH (14:18)
[2024-11-03 14:28] LABS: #Basophils 0.04 10x3/uL (0.0-0.2); #Eosinophils 0.27 10x3/uL (0.0-0.7); #Monocytes 1.47 10x3/uL (0.11-0.59); #Neutrophils 9.01 10x3/uL (1.40-6.50); %Basophils 0.4 % (0.0-1.0); %Eosinophils 2.4 % (0.0-10.0); %Lymphocytes 3.6 % (21.0-51.0); %Monocytes 13.1 % (0.0-10.0); %Neutrophils 80.1 % (42.0-75.0); Hematocrit 25.6 % (42.0-52.0); Hemoglobin 8.5 g/dL (14.0-18.0); Mean Corpuscular Hemoglobin 29.8 pg (27.0-31.0); Mean Corpuscular Volume 89.8 fL (78.0-98.0); Platelet Count 276 10x3/uL (130-400); Red Blood Cell (RBC) Count 2.85 mill/uL (4.70-6.10); White Blood Cell (WBC) Count 11.24 10x3/uL (4.8-10.8)
[2024-11-03 14:30] LABS: INR-International Normal Ratio 1.4; Prothrombin Time 17.1 sec (12.0-14.7)
[2024-11-03 14:31] LABS: PTT 29.2 sec (22.9-36.1)
[2024-11-03 14:35] LABS: Osmolality, Serum 259 mOsm/kg (280-301)
[2024-11-03 14:45] LABS: Anion Gap 15 mmol/L (10-20); BUN (Urea Nitrogen) 30 mg/dL (8.4-25.7); Calc. Creatinine Clearance 43 mL/min (70-130); Calcium 8.6 mg/dL (7.8-10.44); Carbon Dioxide 18 mmol/L (23-31); Chloride 90 mmol/L (98-107); Glucose 133 mg/dL (80-115); Potassium 5.7 mmol/L (3.5-5.1); Sodium 117 mmol/L (136-145)
[2024-11-03] MEDS: Dextrose 50% Abboject 50 ML SYRINGE SLOW IVP PRN (16:29)
[2024-11-03] MEDS: LOKELMA 10 GM PACKET PO SCH (16:30)
[2024-11-03 17:34] LABS: Osmolality, Urine 321 mOsm/kg (50-1200)
[2024-11-03] MEDS: CALCIUM GLUC 1 GM/NS 50 ML 1 GM in Premix 1 BAG IVPB SCH (18:14)
[2024-11-03 20:41] LABS: Anion Gap 17 mmol/L (10-20); BUN (Urea Nitrogen) 26 mg/dL (8.4-25.7); Calc. Creatinine Clearance 57 mL/min (70-130); Calcium 8.8 mg/dL (7.8-10.44); Carbon Dioxide 20 mmol/L (23-31); Chloride 88 mmol/L (98-107); Glucose 162 mg/dL (80-115); Potassium 5.3 mmol/L (3.5-5.1); Sodium 120 mmol/L (136-145)
[2024-11-04 04:30] LABS: #Basophils Less than 0.03 10x3/uL (0.0-0.2); #Eosinophils Less than 0.03 10x3/uL (0.0-0.7); #Monocytes 1.03 10x3/uL (0.11-0.59); #Neutrophils 10.57 10x3/uL (1.40-6.50); %Basophils 0.1 % (0.0-1.0); %Eosinophils 0.0 % (0.0-10.0); %Lymphocytes 1.9 % (21.0-51.0); %Monocytes 8.6 % (0.0-10.0); %Neutrophils 88.8 % (42.0-75.0); Hematocrit 24.2 % (42.0-52.0); Hemoglobin 8.0 g/dL (14.0-18.0); Mean Corpuscular Hemoglobin 29.5 pg (27.0-31.0); Mean Corpuscular Volume 89.3 fL (78.0-98.0); Platelet Count 261 10x3/uL (130-400); Red Blood Cell (RBC) Count 2.71 mill/uL (4.70-6.10); White Blood Cell (WBC) Count 11.91 10x3/uL (4.8-10.8)
[2024-11-04 04:44] LABS: Anion Gap 14 mmol/L (10-20); BUN (Urea Nitrogen) 21 mg/dL (8.4-25.7); Calc. Creatinine Clearance 83 mL/min (70-130); Calcium 8.6 mg/dL (7.8-10.44); Carbon Dioxide 21 mmol/L (23-31); Chloride 91 mmol/L (98-107); Glucose 144 mg/dL (80-115); Potassium 5.0 mmol/L (3.5-5.1); Sodium 121 mmol/L (136-145)
[2024-11-04] MEDS: HYDROcodone/Acetaminophen 5/325 mg Tablet PO PRN (09:21)
[2024-11-04] MEDS: Carvedilol 25 MG TAB PO SCH (10:21)
[2024-11-04] MEDS: HYDROcodone/Acetaminophen 10/325 mg Tablet PO PRN (13:43)
[2024-11-05 03:23] LABS: #Basophils Less than 0.03 10x3/uL (0.0-0.2); #Eosinophils 0.30 10x3/uL (0.0-0.7); #Monocytes 1.35 10x3/uL (0.11-0.59); #Neutrophils 8.34 10x3/uL (1.40-6.50); %Basophils 0.2 % (0.0-1.0); %Eosinophils 2.9 % (0.0-10.0); %Lymphocytes 4.4 % (21.0-51.0); %Monocytes 12.8 % (0.0-10.0); %Neutrophils 79.2 % (42.0-75.0); Hematocrit 24.1 % (42.0-52.0); Hemoglobin 7.9 g/dL (14.0-18.0); Mean Corpuscular Hemoglobin 29.5 pg (27.0-31.0); Mean Corpuscular Volume 89.9 fL (78.0-98.0); Platelet Count 301 10x3/uL (130-400); Red Blood Cell (RBC) Count 2.68 mill/uL (4.70-6.10); White Blood Cell (WBC) Count 10.52 10x3/uL (4.8-10.8)
[2024-11-05 05:09] LABS: Anion Gap 15 mmol/L (10-20); BUN (Urea Nitrogen) 21 mg/dL (8.4-25.7); Calc. Creatinine Clearance 121 mL/min (70-130); Calcium 8.9 mg/dL (7.8-10.44); Carbon Dioxide 20 mmol/L (23-31); Chloride 90 mmol/L (98-107); Glucose 108 mg/dL (80-115); Potassium 5.1 mmol/L (3.5-5.1); Sodium 120 mmol/L (136-145)
[2024-11-05] MEDS: hydrALAZINE 20 MG/ML VIAL SLOW IVP SCH (05:37)
[2024-11-05] MEDS: niCARdipine 25 MG in Sodium Chloride 0.9% 250 ML 250 ML IVPB SCH (06:18)
[2024-11-05] MEDS ORDERED: niCARdipine 40MG In NaCl 40 MG/200 ML BAG IVPB SCH (21:15)
[2024-11-05] MEDS: niCARdipine 50 MG, Admixture Fee 1 EACH in Sodium Chloride 0.9% 250 ML 230 ML IV SCH (22:36)
[2024-11-06 05:01] LABS: #Basophils 0.05 10x3/uL (0.0-0.2); #Eosinophils 0.20 10x3/uL (0.0-0.7); #Monocytes 1.70 10x3/uL (0.11-0.59); #Neutrophils 8.62 10x3/uL (1.40-6.50); %Basophils 0.4 % (0.0-1.0); %Eosinophils 1.7 % (0.0-10.0); %Lymphocytes 7.1 % (21.0-51.0); %Monocytes 14.8 % (0.0-10.0); %Neutrophils 75.3 % (42.0-75.0); Hematocrit 19.1 % (42.0-52.0); Hemoglobin 6.4 g/dL (14.0-18.0); Mean Corpuscular Hemoglobin 29.6 pg (27.0-31.0); Mean Corpuscular Volume 88.4 fL (78.0-98.0); Platelet Count 403 10x3/uL (130-400); Red Blood Cell (RBC) Count 2.16 mill/uL (4.70-6.10); White Blood Cell (WBC) Count 11.46 10x3/uL (4.8-10.8)
[2024-11-06 05:26] LABS: Anion Gap 16 mmol/L (10-20); BUN (Urea Nitrogen) 9 mg/dL (8.4-25.7); Calc. Creatinine Clearance 180 mL/min (70-130); Calcium 9.0 mg/dL (7.8-10.44); Carbon Dioxide 24 mmol/L (23-31); Chloride 91 mmol/L (98-107); Glucose 156 mg/dL (80-115); Potassium 3.2 mmol/L (3.5-5.1); Sodium 128 mmol/L (136-145)
[2024-11-06] MEDS: Potassium Chloride 20 MEQ in Premix 1 BAG IVPB SCH (09:14)
[2024-11-06 10:28] LABS: #Basophils 0.07 10x3/uL (0.0-0.2); #Eosinophils 0.25 10x3/uL (0.0-0.7); #Monocytes 1.41 10x3/uL (0.11-0.59); #Neutrophils 6.10 10x3/uL (1.40-6.50); %Basophils 0.8 % (0.0-1.0); %Eosinophils 2.9 % (0.0-10.0); %Lymphocytes 7.3 % (21.0-51.0); %Monocytes 16.6 % (0.0-10.0); %Neutrophils 71.8 % (42.0-75.0); Hematocrit 31.0 % (42.0-52.0); Hemoglobin 10.3 g/dL (14.0-18.0); Mean Corpuscular Hemoglobin 29.3 pg (27.0-31.0); Mean Corpuscular Volume 88.1 fL (78.0-98.0); Platelet Count 365 10x3/uL (130-400); Red Blood Cell (RBC) Count 3.52 mill/uL (4.70-6.10); White Blood Cell (WBC) Count 8.50 10x3/uL (4.8-10.8)
[2024-11-06] MEDS: Lisinopril 20 MG TAB PO SCH (18:09)
[2024-11-06] MEDS: Mupirocin 1 GM TUBE TP SCH (20:50)
[2024-11-07 04:45] LABS: Hematocrit 27.8 % (42.0-52.0); Hemoglobin 9.4 g/dL (14.0-18.0); Mean Corpuscular Hemoglobin 29.1 pg (27.0-31.0); Mean Corpuscular Volume 86.1 fL (78.0-98.0); Platelet Count 364 10x3/uL (130-400); Red Blood Cell (RBC) Count 3.23 mill/uL (4.70-6.10); White Blood Cell (WBC) Count 8.52 10x3/uL (4.8-10.8)
[2024-11-07 05:09] LABS: Anion Gap 16 mmol/L (10-20); BUN (Urea Nitrogen) 14 mg/dL (8.4-25.7); Calc. Creatinine Clearance 141 mL/min (70-130); Calcium 9.1 mg/dL (7.8-10.44); Carbon Dioxide 23 mmol/L (23-31); Chloride 92 mmol/L (98-107); Glucose 102 mg/dL (80-115); Potassium 3.6 mmol/L (3.5-5.1); Sodium 127 mmol/L (136-145)
[2024-11-07 05:17] LABS: Platelet Adequacy Comment Platelets Normal; Polychromasia SLIGHT = 2-3 cells HPF (0-2); Smudge Cells 3.9 %
[2024-11-07] MEDS: Lisinopril 20 MG TAB PO SCH (09:27)
[2024-11-07] MEDS: Enoxaparin 40 MG (0.4 mL) SYRINGE SC SCH (20:12)
[2024-11-08] MEDS: diphenhydrAMINE 25 MG CAP PO SCH (00:36)
[2024-11-08 08:04] LABS: #Basophils 0.18 10x3/uL (0.0-0.2); #Eosinophils 0.84 10x3/uL (0.0-0.7); #Monocytes 0.97 10x3/uL (0.11-0.59); #Neutrophils 5.43 10x3/uL (1.40-6.50); %Basophils 2.0 % (0.0-1.0); %Eosinophils 9.5 % (0.0-10.0); %Lymphocytes 13.4 % (21.0-51.0); %Monocytes 11.0 % (0.0-10.0); %Neutrophils 61.8 % (42.0-75.0); Hematocrit 26.9 % (42.0-52.0); Hemoglobin 8.9 g/dL (14.0-18.0); Mean Corpuscular Hemoglobin 29.2 pg (27.0-31.0); Mean Corpuscular Volume 88.2 fL (78.0-98.0); Platelet Count 405 10x3/uL (130-400); Red Blood Cell (RBC) Count 3.05 mill/uL (4.70-6.10); White Blood Cell (WBC) Count 8.80 10x3/uL (4.8-10.8)
[2024-11-08 08:28] LABS: Anion Gap 15 mmol/L (10-20); BUN (Urea Nitrogen) 11 mg/dL (8.4-25.7); Calc. Creatinine Clearance 143 mL/min (70-130); Calcium 8.7 mg/dL (7.8-10.44); Carbon Dioxide 21 mmol/L (23-31); Chloride 94 mmol/L (98-107); Glucose 171 mg/dL (80-115); Potassium 3.6 mmol/L (3.5-5.1); Sodium 126 mmol/L (136-145)
[2024-11-09 05:28] LABS: Hematocrit 27.7 % (42.0-52.0); Hemoglobin 9.0 g/dL (14.0-18.0); Mean Corpuscular Hemoglobin 28.6 pg (27.0-31.0); Mean Corpuscular Volume 87.9 fL (78.0-98.0); Platelet Count 437 10x3/uL (130-400); Red Blood Cell (RBC) Count 3.15 mill/uL (4.70-6.10); White Blood Cell (WBC) Count 8.56 10x3/uL (4.8-10.8)
[2024-11-09 05:53] LABS: Platelet Adequacy Comment Platelets Increased; Polychromasia SLIGHT = 2-3 cells HPF (0-2)
[2024-11-09 05:55] LABS: Anion Gap 13 mmol/L (10-20); BUN (Urea Nitrogen) 9 mg/dL (8.4-25.7); Calc. Creatinine Clearance 138 mL/min (70-130); Calcium 8.7 mg/dL (7.8-10.44); Carbon Dioxide 24 mmol/L (23-31); Chloride 96 mmol/L (98-107); Glucose 88 mg/dL (80-115); Potassium 4.2 mmol/L (3.5-5.1); Sodium 129 mmol/L (136-145)
[2024-11-09 12:45] VITALS: BMI 28.6
[2024-11-09] MEDS ORDERED: hydrALAZINE 20 MG/ML VIAL SLOW IVP PRN (13:05)
[2024-11-10 05:35] LABS: #Basophils 0.23 10x3/uL (0.0-0.2); #Eosinophils 1.19 10x3/uL (0.0-0.7); #Monocytes 1.74 10x3/uL (0.11-0.59); #Neutrophils 5.07 10x3/uL (1.40-6.50); %Basophils 2.4 % (0.0-1.0); %Eosinophils 12.2 % (0.0-10.0); %Lymphocytes 12.6 % (21.0-51.0); %Monocytes 17.8 % (0.0-10.0); %Neutrophils 51.7 % (42.0-75.0); Hematocrit 28.9 % (42.0-52.0); Hemoglobin 9.5 g/dL (14.0-18.0); Mean Corpuscular Hemoglobin 29.2 pg (27.0-31.0); Mean Corpuscular Volume 88.9 fL (78.0-98.0); Platelet Count 472 10x3/uL (130-400); Red Blood Cell (RBC) Count 3.25 mill/uL (4.70-6.10); White Blood Cell (WBC) Count 9.78 10x3/uL (4.8-10.8)
[2024-11-10 05:56] LABS: Anion Gap 13 mmol/L (10-20); BUN (Urea Nitrogen) 9 mg/dL (8.4-25.7); Calc. Creatinine Clearance 224 mL/min (70-130); Calcium 9.1 mg/dL (7.8-10.44); Carbon Dioxide 24 mmol/L (23-31); Chloride 95 mmol/L (98-107); Glucose 82 mg/dL (80-115); Potassium 4.7 mmol/L (3.5-5.1); Sodium 127 mmol/L (136-145)
[2024-11-10 06:18] VITALS: BMI 28.5
[2024-11-10] MEDS: Lisinopril 10 MG TAB PO SCH (09:02)
[2024-11-10 11:40] VITALS: BP 149/93; TEMP 98.2
== END 2024-11-10 12:58 | disposition home or self-care (01) | DRG 483 ==
LOC: SDC 06:42 → SURG B 14:21 → SDC 15:59 → OBSVTOIN 11-03 10:35 → IMCU/EMU 11-03 17:35 → CCU 11-05 07:50 → SURG A 11-08 13:18
PROVIDERS: ADMIT Orthopaedic Surgery; ATTEND Orthopaedic Surgery
PROC: 0RRJ00Z Replacement of Right Shoulder Joint with Reverse Ball and Socket Synthetic Substitute, Open Approach (ICD-10-PCS; principal; 2024-11-01)
PROC: 3E03329 Introduction of Other Anti-infective into Peripheral Vein, Percutaneous Approach (ICD-10-PCS; 2024-11-01)
DX: S42.291A Other displaced fracture of upper end of right humerus, initial encounter for closed fracture (principal); J69.0 Pneumonitis due to inhalation of food and vomit; E87.1 Hypo-osmolality and hyponatremia; N17.9 Acute kidney failure, unspecified; D62 Acute posthemorrhagic anemia; Z98.890 Other specified postprocedural states; Z88.5 Allergy status to narcotic agent; Z88.8 Allergy status to other drugs, medicaments and biological substances; Z90.49 Acquired absence of other specified parts of digestive tract; I10 Essential (primary) hypertension; D64.9 Anemia, unspecified; G47.33 Obstructive sleep apnea (adult) (pediatric); G25.81 Restless legs syndrome; F43.10 Post-traumatic stress disorder, unspecified; I95.9 Hypotension, unspecified; E87.5 Hyperkalemia; E86.0 Dehydration; D72.829 Elevated white blood cell count, unspecified; E03.9 Hypothyroidism, unspecified; F41.9 Anxiety disorder, unspecified; G50.0 Trigeminal neuralgia; E87.6 Hypokalemia; I16.0 Hypertensive urgency; N18.9 Chronic kidney disease, unspecified; Z79.899 Other long term (current) drug therapy
CPT/HCPCS: 36415; 71045; 71275; 80048; 80053; 83880; 83930; 83935; 84300; 84484; 85025; 85610; 85730; 86850; 86900; 86901; 87081; 93005; 93010; 94640; 96374; 96375; 96376; A4306; C1713; C1776; G0378; J0360; J0613; J1650; J1815; J1885; J1940; J2250; J2543; J2704; J2795; J2919; J3373; J3411; J3480; J7030; J7050; J7999; Q9967

== ENCOUNTER 2024-12-04 08:21 | Outpatient (CLI) | payer OTHER | END 2024-12-04 08:22 | disposition home or self-care (01) | LOC: SCSMRI 08:21 | PROVIDERS: ATTEND Internal Medicine | DX: R20.0 Anesthesia of skin (principal); R90.82 White matter disease, unspecified | CPT/HCPCS: 70551 ==